=== PATIENT | male | born 1960 | race Caucasian/White ===

== ENCOUNTER → 2018-11-05 | Outpatient (CLI) | payer MEDICAID ==
[~2018-11-05] MED LIST: ASPI-496 PO; ATOR10TA PO; TICA90TA PO
== END | disposition home or self-care (01) ==
LOC: CVU 12:52
PROVIDERS: ATTEND Internal Medicine Cardiovascular Disease
DX: I35.1 Nonrheumatic aortic (valve) insufficiency (principal); I51.7 Cardiomegaly
CPT/HCPCS: 0399T; 93306